=== PATIENT | female | born 1950 | race Caucasian/White ===

== ENCOUNTER 2018-11-21 05:00 | Inpatient (IN) ==
[2018-11-11 10:38] LABS: Appearance,Urine CLEAR; Bacteria,Urine 0 /hpf (0); Bilirubin,Urine NEG (NEG); Color,Urine YELLOW; Glucose,Urine (UA) NEGATIVE (NEG); Leukocyte Esterase,Urine 500 /uL (NEG); Mucus,Urine FEW /hpf (0); Protein,Urine NEG (NEG); Specific Gravity,Urine 1.019 (1.000-1.035); Urine Blood NEG mg/dL (<0.03); Urine RBC 4 /hpf (0-1); Urine Squamous Epithelial Cell 0 /hpf (0-4); Urine Transitional Epi Cells < 1 /hpf (0-2); Urine WBC 23 /hpf (0-4); Urobilinogen,Urine NEG (NEG)
[2018-11-11 11:30] LABS: Blood Urea Nitrogen 17 mg/dl (8-23)
[2018-11-11 11:39] LABS: Basophils # (Auto) 0 K/mcL (0.0-0.3); Basophils % (Auto) 0.6 % (0.0-2.0); Eosinophils # (Auto) 0.2 K/mcL (0.0-0.7); Granulocytes % (Auto) 52.7 % (38.0-78.0); Lymphocytes # (Auto) 1.1 K/mcL (1.5-4.8); Lymphocytes % (Auto) 33.3 % (15.5-49.0); Mean Cell Volume 93.1 fL (80.0-100.0); Mean Corpuscular HGB Conc 33.4 g/dL (31.0-36.0); Monocytes # (Auto) 0.2 K/mcL (0.1-0.9); Monocytes % (Auto) 6.4 % (1.0-12.0); Platelet Count 268 K/mcL (140-440); RBC 4.02 M/mcL (4.00-5.20); Red Cell Distribution Width 14.2 % (11.5-14.5)
[2018-11-11 12:19] LABS: Estimated Average Glucose(eAG) 114 mg/dL; Hemoglobin A1C 5.6 % HGB (4.0-6.0)
[2018-11-21] MEDS ORDERED: ceFAZolin 1 GM VIAL IV SCH (07:00)
[2018-11-21] MEDS ORDERED: CELECOXIB 200 MG CAPSULE PO SCH (07:00)
[2018-11-21] MEDS ORDERED: 0.9 % SODIUM CHLORIDE 9 ML, KETOROLAC 30 MG, ROPIVACAINE HCL/PF 49.5 ML, EPINEPHrine 0.... IJ SCH (07:00)
[2018-11-21] MEDS ORDERED: oxyCODONE 10 MG TAB.ER.12H PO SCH (07:00)
[2018-11-21] MEDS ORDERED: PREGABALIN 75 MG CAPSULE PO SCH (07:00)
[2018-11-21] MEDS ORDERED: ACETAMINOPHEN 500 MG TABLET PO SCH (07:00)
[2018-11-21 07:12] LABS: Appearance,Urine CLEAR; Bilirubin,Urine NEG (NEG); Color,Urine STRAW; Glucose,Urine (UA) NEGATIVE (NEG); Leukocyte Esterase,Urine NEG /uL (NEG); Protein,Urine NEG (NEG); Specific Gravity,Urine 1.005 (1.000-1.035); Urine Blood NEG mg/dL (<0.03); Urobilinogen,Urine NEG (NEG)
[2018-11-21] MEDS ORDERED: GLYCOPYRROLATE 0.2 MG/ML VIAL IV ONE (08:05)
[2018-11-21] MEDS ORDERED: MIDAZOLAM 5 MG/5 ML VIAL IV ONE (08:05)
[2018-11-21] MEDS ORDERED: ROPIVACAINE HCL/PF 20 ML VIAL IJ ONE (08:05)
[2018-11-21] MEDS ORDERED: DEXAMETHASONE 10 MG/ML VIAL IV ONE (08:05)
[2018-11-21] MEDS ORDERED: LIDOCAINE HCL/PF 100 MG/5 ML SYRINGE IV ONE (08:05)
[2018-11-21] MEDS ORDERED: TRANEXAMIC ACID 1,000 MG/10 ML VIAL IV ONE ×2 (08:05→09:29)
[2018-11-21] MEDS ORDERED: ONDANSETRON 4 MG/2 ML VIAL IV ONE (08:05)
[2018-11-21] MEDS ORDERED: KETAMINE 100 MG/ML ML IV ONE (08:05)
[2018-11-21] MEDS ORDERED: PHENYLEPHRINE 10 MG/ML VIAL IV ONE (08:05)
[2018-11-21] MEDS ORDERED: PROPOFOL 200 MG/20 ML VIAL IV ONE (08:05)
[2018-11-21] MEDS ORDERED: GENTAMICIN SULFATE 800 MG/20 ML VIAL IR ONE (08:32)
[2018-11-21] MEDS ORDERED: LACTATED RINGERS 250 ML IV PRN (08:46)
[2018-11-21] MEDS ORDERED: FLUMAZENIL 0.1 MG/ML ML IV PRN (08:46)
[2018-11-21] MEDS ORDERED: IPRATROPIUM/ALBUTEROL 3 ML AMPUL.NEB NEB PRN (08:46)
[2018-11-21] MEDS ORDERED: NALOXONE HCL 0.4 MG/ML VIAL IV PRN (08:46)
[2018-11-21] MEDS ORDERED: METHOCARBAMOL 1,000 MG/10 ML VIAL IV PRN (08:46)
[2018-11-21] MEDS ORDERED: BENZOCAINE/MENTHOL 1 LOZENGE PO PRN ×2 (08:46→09:29)
[2018-11-21] MEDS ORDERED: ONDANSETRON 4 MG/2 ML VIAL IV PRN ×2 (08:46→09:29)
[2018-11-21] MEDS ORDERED: fentaNYL 100 MCG/2 ML VIAL IV PRN (08:46)
[2018-11-21] MEDS ORDERED: ACETAMINOPHEN 1,000 MG/100 ML BOTTLE IV ONE (08:46)
[2018-11-21] MEDS ORDERED: KETOROLAC 30 MG/ML VIAL IV PRN (08:46)
[2018-11-21] MEDS ORDERED: LACTATED RINGERS 1,000 ML IV SCH (09:00)
--- NOTE | 2018-11-21 09:27 | Brief Operative Note ---
Date of procedure: 11/21/18 Pre-op diagnosis: left knee djd severe Post-op diagnosis: same Procedure: left tka Grafts/Implants: Yes Anesthesia: GETA Complications Description: 11/21/18 09:27 none Surgeon: Sathish Tong Investigator Utility Bill Complaints: Ronny Marina Estimated blood loss (cc): 20 Tourniquet Time (Minutes): 54 Specimens Removed/Pathology: none sent Condition: stable Disposition: PACU
[2018-11-21] MEDS ORDERED: MAGNESIUM HYDROXIDE 30 ML ORAL.SUSP PO PRN (09:29)
[2018-11-21] MEDS ORDERED: HYDROmorphone 2 MG/ML VIAL IV PRN (09:29)
[2018-11-21] MEDS ORDERED: FLEETS ADULT ENEMA PR PRN (09:29)
[2018-11-21] MEDS ORDERED: BISACODYL 10 MG SUPP.RECT PR PRN (09:29)
[2018-11-21] MEDS ORDERED: POLYETHYLENE GLYCOL 3350 17 GM PACKET PO PRN (09:29)
[2018-11-21] MEDS ORDERED: ACETAMINOPHEN 325 MG TABLET PO PRN (09:29)
--- NOTE | 2018-11-21 10:07 | XRay Report ---
CLINICAL INFORMATION: Postoperative follow-up TECHNIQUE: AP and lateral left knee COMPARISON: None. FINDINGS: Status post left total knee arthroplasty. Anatomic alignment demonstrated. There is postsurgical soft tissue and intra-articular gas. IMPRESSION: Left total knee arthroplasty Interpreted and Authenticated by: Nik Valverde 11/21/18
--- NOTE | 2018-11-21 10:33 | Operative Note ---
DATE OF OPERATION: 11/21/2018 PREOPERATIVE DIAGNOSIS: A 68-year-old female with left knee degenerative arthritis, severe in two of the three compartments. POSTOPERATIVE DIAGNOSIS: A 68-year-old female with left knee degenerative arthritis, severe in two of the three compartments. PROCEDURE: Left robotic total knee arthroplasty using the Juliano robot. SURGEON: Sathish Tong M.D. BOWLING ALLEY MECHANIC: Ronny Marina PA-C. ANESTHESIA: General LMA anesthesia. COMPLICATIONS: None. DESCRIPTION OF PROCEDURE: The patient was brought to the operating room and put to sleep with general LMA anesthesia. Once asleep, a timeout was performed to confirm the operative site. Tourniquet was inflated to 250 pounds of pressure. Midline incision made, midvastus approach performed. We then took the knee through range of motion and registered center of hip rotation and registered thirty points on the femur and the tibia after predrilling the holes on the femur and the tibia. Medial and lateral malleoli were registered. We registered the robot. This was brought in and we balanced the knee perfectly. Once finally done, we then brought in the robot and made the bony cuts. We trialed the components which fit very nicely with a 9 mm cruciate retained design. The patella was a 31 mm patella. Total thickness was 20 mm. We then cut the patella to 12 mm thickness and cemented into place a 31 mm patellar button, a size 1 femur, and size 1 tibial baseplate with a 9 mm insert. The patient tolerated this well without complication. Excess cement was removed. We irrigated thoroughly, kept the knee at 45 degrees, closed the midvastus approach with #1 Stratafix x2 sutures. We closed the skin with 2-0 Vicryl and adhesive closure. The portals were closed with 4-0 nylon. All pins were accounted for. RBH:nikki Job ID: [id number] Doc ID: [id number] Sathish Tong MD
[2018-11-21] MEDS ORDERED: KETOROLAC 15 MG/ML VIAL IV SCH (12:00)
[2018-11-21] MEDS: oxyCODONE/APAP 5/325MG TABLET PO PRN ×2 (14:38→23:48)
[2018-11-21] MEDS: 0.9 % SODIUM CHLORIDE 10 ML SYRINGE IV SCH ×2 (14:39→21:18)
[2018-11-21] MEDS: 0.45 % SODIUM CHLORIDE 1,000 ML IV SCH ×2 (14:39→21:45)
[2018-11-21] MEDS: ceFAZolin 1 GM VIAL IV SCH ×2 (14:40→23:48)
[2018-11-21] MEDS: metFORMIN 500 MG TABLET PO SCH (17:04)
[2018-11-21] MEDS: CITALOPRAM 20 MG TABLET PO SCH ×2 (18:08→21:18)
[2018-11-21] MEDS ORDERED: DOCUSATE SODIUM 100 MG CAPSULE PO SCH (21:00)
[2018-11-21] MEDS ORDERED: ASPIRIN 325 MG ENTERIC COATED TABLET PO SCH (21:00)
[2018-11-21] MEDS ORDERED: SENNOSIDES 1 TABLET PO SCH (21:00)
[2018-11-21] MEDS ORDERED: TEMAZEPAM 15 MG CAPSULE PO PRN (21:00)
[2018-11-21] MEDS: DOCUSATE SODIUM 100 MG CAPSULE PO SCH (21:17)
[2018-11-21] MEDS: ASPIRIN 81 MG TAB.CHEW CHEWED SCH (21:17)
[2018-11-22] MEDS: 0.45 % SODIUM CHLORIDE 1,000 ML IV SCH (06:15)
[2018-11-22] MEDS: 0.9 % SODIUM CHLORIDE 10 ML SYRINGE IV SCH (06:16)
[2018-11-22] MEDS: oxyCODONE/APAP 5/325MG TABLET PO PRN ×2 (06:36→10:28)
[2018-11-22] MEDS ORDERED: glipiZIDE 5 MG TABLET PO SCH (07:30)
--- NOTE | 2018-11-22 07:40 | Orthopedic Progress Note ---
Subjective Patient information: Note initiated : 11/22/18 at 7:39 am Service Date, if different from initiated Date: [] Patient: Umm Lira 68 y/o F admitted on 11/21/18 for Left Total Knee Arthroplasty LISA . Chief Complaint: [minimal pain and walking and eating well] Objective Vital signs: Vital Signs Temp Pulse Resp BP Pulse Ox 11/22/18 05:00 96 11/22/18 03:19 97.5 F 66 16 103/56 96 11/22/18 00:12 97.7 F 70 16 110/62 97 11/21/18 21:00 95 11/21/18 19:54 97.7 F 70 16 119/67 96 11/21/18 17:00 93 11/21/18 15:39 98 F 16 134/87 93 11/21/18 13:29 96 11/21/18 11:05 76 16 96 11/21/18 10:50 97.7 F 91 H 16 126/69 93 11/21/18 10:43 97.1 F 76 16 131/69 96 11/21/18 10:25 97.1 F 91 H 16 129/65 95 11/21/18 10:10 97.7 F 77 16 100/50 100 11/21/18 09:55 97.7 F 75 17 109/46 100 11/21/18 09:50 74 17 113/48 100 11/21/18 09:45 74 17 132/60 100 11/21/18 09:40 97.6 F 69 18 152/67 100 11/21/18 09:29 95 Intake and Output 11/21/18 11/22/18 11/22/18 21:59 05:59 13:59 Intake Total 1510 555 Output Total 500 650 Balance 1010 -95 Intake: IV 710 55 Sodium Chloride 0.45% 1,000 ml 710 55 @ 100 mls/hr IV .Q10H [facility] Rx#: [id number] Oral 800 500 Output: Void Amount 500 650 Other: Urine Appearance Clear Urine Color Bright Yellow Urine Odor Normal # Voids 1 1 Weight 143 lb 8 oz Intake & Output: Intake & Output 11/21/18 11/22/18 11/22/18 21:59 05:59 13:59 Intake Total 1510 555 Output Total 500 650 Balance 1010 -95 Weight 143 lb 8 oz Intake: IV 710 55 Sodium Chloride 0.45% 1,000 ml 710 55 @ 100 mls/hr IV .Q10H [facility] Rx#: [id number] Oral 800 500 Output: Void Amount 500 650 Other: Urine Appearance Clear Urine Color Bright Yellow Urine Odor Normal # Voids 1 1 Incision: Yes healing Incision clean and dry: Yes Dressing: Yes clean Weight bearing status: full Neurological exam IM: Yes neurovascular intact Extremities exam IM: Yes neurovascular intact - Allied Health Allied health notes reviewed: PT - Labs CBC & BMP: 11/22/18 06:06 11/11/18 08:59 Labs: Orthopedic Labs 11/11/18 08:59 PT 12.5 INR 0.9 APTT 27 11/22/18 11/11/18 06:06 08:59 Hgb 12.5 Hct 32.5 L 37.4
--- NOTE | 2018-11-22 07:46 | Discharge Summary ---
Ortho Discharge - TKA - Patient Instructions Diet: Regular Diet Activity: activity as tolerated, weight bearing as tolerated Total Knee Protocol: For Total Knee: Start ROM LUBA with stationary bike or rocking chair. Work on gaining full extension of knee. Posterior dislocation precautions provided. Hip abductor strengthening and gait training instructions provided. Apply Cryocuff as instructed. Dressing Care: Aquacel Ag - leave on for 5 days - Follow Up Plan Follow Up Appointments: Fahad Voss PA-C [Physician Golf Ball Molder] - 12/06/18 8:50 am Disposition: Hospice - Home Prognosis: Fair Rehab Potential: Fair I certify that the patient requires SNF services: No Overall status at discharge: patient is progressing back to baseline - Orders For Discharge Prescriptions: oxyCODONE/APAP [Percocet 5-325 mg] 5 - 10 mg PO Q4HP PRN #60 tab PRN Reason: Pain Level 3-6 Additional Discharge Orders: Physical Therapy at Discharge - TKA Location: None Selected CPM Discharge Order Location: None Selected Toilet Riser Discharge Order Location: None Selected Walker Location: None Selected
[2018-11-22] MEDS: metFORMIN 500 MG TABLET PO SCH (08:03)
[2018-11-22] MEDS ORDERED: LOSARTAN 25 MG TABLET PO SCH (09:00)
[2018-11-22] MEDS ORDERED: NON FORMULARY MEDICATION 1 DOSE MISCELL (Ubidecarenone [Coenzyme Q10] 100 MG) PO SCH (09:00)
[2018-11-22] MEDS ORDERED: FISH OIL 1,000 MG CAPSULE PO SCH (09:00)
[2018-11-22] MEDS ORDERED: TRIAMTERENE/HYDROCHLOROTHIAZID 1 TABLET PO SCH (09:00)
[2018-11-22] MEDS: ASPIRIN 81 MG TAB.CHEW CHEWED SCH (10:01)
[2018-11-22] MEDS: DOCUSATE SODIUM 100 MG CAPSULE PO SCH (10:01)
== END 2018-11-22 10:35 | disposition hospice, home (50) | DRG 470 ==
LOC: MEDSUR 05:00
PROVIDERS: ADMIT Orthopaedic Surgery; ATTEND Orthopaedic Surgery